=== PATIENT | female | born 1955 | race Caucasian/White ===

== ENCOUNTER 2017-09-11 18:19 | Emergency (ER) | payer BC ==
[2017-09-11 19:20] LABS: Bilirubin Negative (Negative); Blood, Urine Small (Negative); Clarity Clear (Clear); Glucose, Urine (Dipstick) Negative (Negative); Leukocyte Negative (Negative); Nitrite Negative (Negative); Protein, Urine (Dipstick) Negative (Neg-Trace); Specific Gravity, Urine 1.015 (1.005-1.030); Urobilinogen 0.2 mg/dL (0.2-1.0)
[2017-09-11 19:24] LABS: Bacteria/HPF Rare-Few HPF (None Seen); Squamous Epithelial 0-3 HPF (0-3); WBC/HPF None Seen HPF (0-3)
[2017-09-11] MEDS ORDERED: Ketorolac Tromethamine 30 MG/ML VIAL ONE (19:24)
[2017-09-11] MEDS ORDERED: Ondansetron HCl/PF 4 MG/2 ML Vial ONE (19:24)
--- NOTE | 2017-09-11 22:29 | CT ---
CT ABDOMEN AND PELVIS WITHOUT CONTRAST 09/11/17 COMPARISON: None available. HISTORY: Left sided flank pain, assess for renal stone disease. TECHNIQUE: Serial axial CT imaging is obtained at 5 mm intervals from the lung bases through pubic symphysis wit hout contrast. Coronal reformatted imaging obtained. FINDINGS: The lack of contrast media limits assessment of the viscera, bowel, vascular structures and for lymph adenopathy. The imaged lung bases are unremarkable. There is a small sliding hiatal hernia noted. The liver, spleen, gallbladder, pancreas, adrenal glands, and kidneys are unremarkable, with no hydro nephrosis or nephrolithiasis evident on either side. There is no evidence for obstructive uropathy or hydroureter on either side. There is mild distention of the urinary bladder. There is no evidence for bowel inflammatory change or obstruction. Scattered atherosclerotic calcification of the abdominal aorta noted. No worrisome lytic or blastic b one lesions. There is subchondral cystic change involving the lateral aspect of the acetabulum on the right, likel y on the basis of degenerative change. There is significant multilevel lower lumbar spine facet hyper trophic change. IMPRESSION: No evidence for obstructive uropathy or nephrolithiasis. POS: BETY
== END 2017-09-11 21:25 | disposition home or self-care (01) ==
LOC: MADERS 18:19
DX: R31.9 Hematuria, unspecified (principal); I10 Essential (primary) hypertension; M62.838 Other muscle spasm
CPT/HCPCS: 74176; 81001; 87086; 96374; 96375; J1885; J2405

== ENCOUNTER 2020-03-11 07:04 | Emergency (ER) | payer BC ==
[2020-03-11] MEDS ORDERED: Aspirin Chewable 81 MG TAB ONE (07:49)
--- NOTE | 2020-03-11 07:54 | RAD ---
EXAM: CHEST ONE VIEW HISTORY: Chest pain COMPARISON: None FINDINGS: Cardiac silhouette is magnified by projection but is at the upper limits of normal to borderline enla rged. The pulmonary vasculature is within normal limits. The lungs are clear. The osseous structures are intact. IMPRESSION: 1. Upper limits of normal to borderline cardiomegaly. 2. No acute cardiopulmonary process.
[2020-03-11 08:07] LABS: Bilirubin Negative (Negative); Blood, Urine Trace (Negative); Clarity Clear (Clear); Glucose, Urine (Dipstick) Negative (Negative); Ketone, Urine Negative (Negative); Leukocyte Negative (Negative); Nitrite Negative (Negative); Protein, Urine (Dipstick) Negative (Neg-Trace); Urobilinogen 0.2 mg/dL (Less than 2)
[2020-03-11 08:08] LABS: #Basophils 0.1 thou/uL (0.0-0.2); #Eosinphils 0.2 thou/uL (0.0-0.7); #Lymphocytes 2.6 thou/uL (1.20-3.40); #Monocytes 0.5 thou/uL (0.11-0.59); #Neutrophils 2.9 thou/uL (1.40-6.50); %Basophils 1.1 % (0.0-1.0); %Eosinophils 2.5 % (0.0-10.0); %Lymphocytes 41.9 % (21.0-51.0); %Monocytes 7.7 % (0.0-10.0); %Neutrophils 46.8 % (42.0-75.0); Hemoglobin 14.1 g/dL (12.0-16.0); Mean Corpuscular HGB CONC 32.4 g/dL (32.0-36.0); Mean Corpuscular Hemoglobin 28.1 pg (27.0-31.0); Mean Corpuscular Volume 86.9 fL (78.0-98.0); Mean Platelet Volume 6.3 fL (7.4-10.4); Platelet Count 345 thou/uL (130-400); Red Blood Cell (RBC) Count 5.02 mill/uL (4.20-5.40); White Blood Cell (WBC) Count 6.1 thou/uL (4.8-10.8)
[2020-03-11 08:16] LABS: Bacteria/HPF Rare-Few HPF (None Seen); RBC/HPF 0-3 HPF (0-3); Squamous Epithelial 0-3 HPF (0-3); WBC/HPF 0-3 HPF (0-3)
[2020-03-11 08:23] LABS: ALT (SGPT) 26 U/L (8-55); AST (SGOT) 17 U/L (5-34); Albumin 4.3 g/dL (3.4-4.8); Alkaline Phosphatase 95 U/L (40-110); Anion Gap 16 mmol/L (10-20); BUN (Urea Nitrogen) 18 mg/dL (9.8-20.1); Bilirubin, Total 0.3 mg/dL (0.2-1.2); CK (CPK) 251 U/L (29-168); Calc. Creatinine Clearance 0 mL/min (70-130); Calcium 8.8 mg/dL (7.8-10.44); Carbon Dioxide 23 mmol/L (23-31); Chloride 107 mmol/L (98-107); Estimated GFR-MDRD 79; Globulin 2.6 g/dL (2.4-3.5); Glucose 104 mg/dL (80-115); Potassium 3.9 mmol/L (3.5-5.1); Protein, Total 6.9 g/dL (6.0-8.3); Sodium 142 mmol/L (136-145)
[2020-03-11 08:25] LABS: CKMB 4.4 ng/mL (0-6.6)
== END 2020-03-11 09:03 | disposition home or self-care (01) ==
LOC: MADERS 07:04
DX: I10 Essential (primary) hypertension (principal); R07.9 Chest pain, unspecified; M79.10 Myalgia, unspecified site; Z79.899 Other long term (current) drug therapy
CPT/HCPCS: 71045; 80053; 81003; 81015; 82550; 82553; 84484; 85025; 93005; 94760